=== PATIENT | female | born 1980 | race Caucasian/White ===

== ENCOUNTER 2024-06-24 17:40 | Emergency (ER) | payer OTHER ==
[~2024-06-24] VITALS: Ht 154.9 cm; Wt 72.6 kg
[2024-06-24 17:59] VITALS: BP_SYST 132; PULSE 104; RESP 18; TEMP 97.6; O2SAT 97
[2024-06-24] MEDS: HYDROcodone/ACETAMIN 5-325 MG TAB (NORCO/ VICODIN) PO ONE (18:09)
[2024-06-24 20:00] VITALS: BP_SYST 132; PULSE 104; RESP 18; TEMP 97.6; O2SAT 97
== END 2024-06-24 20:00 | disposition home or self-care (01) ==
LOC: SED 17:40
DX: M54.50 Low back pain, unspecified (principal); E11.9 Type 2 diabetes mellitus without complications; I10 Essential (primary) hypertension; V89.2XXA Person injured in unspecified motor-vehicle accident, traffic, initial encounter; Y93.89 Activity, other specified; Y92.89 Other specified places as the place of occurrence of the external cause; Y99.8 Other external cause status
CPT/HCPCS: 72100; 81025; 99283